=== PATIENT | female | born 1990 | race Caucasian/White ===

== ENCOUNTER 2018-02-27 11:32 | Day surgery (SDC) | payer OTHER ==
[2018-02-27] MEDS ORDERED: PROPOFOL 40 ML (13:41)
[2018-02-27] MEDS ORDERED: LIDOCAINE 2% (SDV) 5 ML INJ (13:41)
== END 2018-02-27 15:24 | disposition home or self-care (01) ==
LOC: GIL 11:32
DX: K29.60 Other gastritis without bleeding (principal); K44.9 Diaphragmatic hernia without obstruction or gangrene; K21.0 Gastro-esophageal reflux disease with esophagitis; E66.9 Obesity, unspecified; Z68.41 Body mass index [BMI] 40.0-44.9, adult
CPT/HCPCS: 43239; 84703; 88305; 88312